=== PATIENT | female | born 1995 | race Caucasian/White ===

== ENCOUNTER 2017-05-12 14:58 | Inpatient (IN) | payer OTHER ==
[~2017-05-12] VITALS: Ht 170.2 cm; Wt 98.1 kg
[2017-05-12 15:04] VITALS: BP 101/60; PULSE 85; RESP 18; Ht 170.2 cm; Wt 98.1 kg
[2017-05-12] MEDS ORDERED: BUTORPHANOL 2 MG INJ IV PRN (16:00)
[2017-05-12] MEDS ORDERED: LACTATED RINGER'S 1,000 ML IV PRN (16:00)
[2017-05-12] MEDS ORDERED: LIDOCAINE 1% (MPF) 30 ML INJ INJ PRN (16:00)
[2017-05-12] MEDS ORDERED: MISOPROSTOL 200 MCG TAB PR PRN (16:00)
[2017-05-12] MEDS ORDERED: MINERAL OIL LIGHT 10 ML VIAL TOP ONE (16:00)
[2017-05-12] MEDS ORDERED: OXYTOCIN 30 UNITS/LR 500 ML IV SCH ×2 (16:00)
[2017-05-12] MEDS ORDERED: CARBOPROST 250 MCG INJ IM PRN (16:00)
[2017-05-12] MEDS ORDERED: METHYLERGONOVINE 0.2 MG INJ IM PRN (16:00)
[2017-05-12] MEDS ORDERED: IBUPROFEN 600 MG TAB PO PRN (16:00)
[2017-05-12] MEDS ORDERED: OXYTOCIN 30 UNITS/LR 500 ML IV PRN (16:00)
[2017-05-12] MEDS ORDERED: AMPICILLIN 2 GM/NS (PMX) 100 ML IV ONE (16:00)
[2017-05-12] MEDS ORDERED: ACETAMINOPHEN/CODEINE #3 TAB PO PRN (16:00)
--- NOTE | 2017-05-12 16:00 | TRIAGE ---
OB Triage Datetime Report Generated by CPN: 05/12/2017 15:59 Datetime: 05/12/2017 15:15 Vaginal Exam Dilatation (cms): 1.5 Effacement (%): 70 Station: -3 Exam By: HARSHIL Vaginal Bleeding: None Cervix, Consistency: Moderate Cervix, Position: Posterior Presentation 'A': Cephalic Datetime: 05/12/2017 15:05 Time of Arrival: 05/12/2017 14:40 EGA: 40.0 Arrived By: Ambulatory Arrived From: Home Chief Complaint: PT PRESENTS TO TRIAGE COMPLAINING OF CONTRACTIONS SINCE 1000, ALSO REPORTS EAR A KOKI X 2 DAYS Movement: Present Contractions: Irregular Time Contractions Began: 05/12/2017 10:00 Contractions: Q5-20 Rupture of Membranes: Denies Vaginal Bleeding: None Vaginal Discharge: Denies Recent Sexual Intercouse: Denies Abdominal Trauma: Not Applicable Patient Complaints: Contractions Time Provider Notified: 05/12/2017 15:19 Provider Notified: FOROOHAR Initial Plan: EFM/SVE Datetime: 05/12/2017 14:50 Assessment Type: Triage Maternal Assessment Level of Consciousness: Fully Conscious DTR's/Clonus: DTRs 2+; No Clonus Headache: Denies Blurred Vision: No Respiratory Effort: Unlabored; Regular Rhythm Breath Sounds, Left: Clear and Equal Breath Sounds, Right: Clear and Equal Nausea/Vomiting: Denies RUQ Epigastric Pain: Denies Lower Extremities Edema: None Degree: None Upper Extremities Edema: None Degree: None Facial Edema: None Temperature Route: Oral Fall Risk Assessment History of Falling: (0) No Secondary Diagnosis: (0) No Ambulatory Aid: (0) Bedrest/Nurse Assist IV Therapy: (0) No Gait: (0) Normal/Bedrest/Immobile Mental Status: (0) Oriented to Own Ability Fall Score: 0 Fall Risk Score Definition: No Risk: No action required
--- NOTE | 2017-05-12 16:24 | RADRPT ---
PROCEDURE: US limited OB for weight CLINICAL INDICATION: Macrosomia TECHNIQUE: Multiple sonographic images of the pelvis were obtained. Transabdominal imaging only w as performed. The images were reviewed on a PACS workstation. COMPARISON: No prior studies are available for comparison. FINDINGS: There is a single viable intrauterine gestation. Cardiac activity is present with 128 beats per minute. There is a cephalic presentation. Measurements were made in order to determine age. The results are as follows: BPD = 9.2 cm. HC = 32.8 cm. AC = 34.9 cm. FL = 7.6 cm. Estimated gestational age of approximately 38 weeks 0 days. The estimated date of delivery is 05/26/2017. The EFW = 3484 g. Growth percentile 38 %. The placenta is fundal grade II. There is no evidence for an abruption or placenta previa. IMPRESSION: 1. Single viable intrauterine gestation of approximately 38 weeks 0 days. 2. Estimated weight is 3484 grams with a growth percentile of 38 %. RPTAT: QQ .Byron Goodwin MD, MD Date Time Electronically viewed and signed by .Byron Goodwin MD, on 05/12/2017 16:24 .L/
[2017-05-12] MEDS: LACTATED RINGER'S 1,000 ML IV SCH (17:40)
[2017-05-12 17:55] LABS: BASOPHILS % 0.2 % (0.0-2.0); EOSINOPHILS # 0.1 10^3/ul (0.0-0.5); EOSINOPHILS % 1.3 % (0.0-7.0); HEMATOCRIT 36.1 % (37.0-47.0); HEMOGLOBIN 12.2 g/dl (12.0-16.0); LYMPHOCYTES # 2.1 10^3/ul (0.8-2.9); LYMPHOCYTES % 25.6 % (18.0-55.0); MEAN CORPUSCULAR HEMOGLOBIN 28.2 pg (29.0-33.0); MEAN CORPUSCULAR HGB CONC 33.8 g/dl (32.0-37.0); MEAN CORPUSCULAR VOLUME 83.6 fl (72.0-104.0); MEAN PLATELET VOLUME 10.8 fl (7.4-10.4); MONOCYTE # 0.6 10^3/ul (0.3-0.9); MONOCYTES % 6.9 % (0.0-13.0); NEUTROPHIL # 5.5 10^3/ul (1.6-7.5); NEUTROPHILS % 65.4 % (30.0-74.0); PLATELET COUNT 255 10^3/UL (140-415); RED BLOOD COUNT 4.32 10^6/ul (4.20-5.40); RED CELL DISTRIBUTION WIDTH 13.3 % (11.5-14.5); WHITE BLOOD COUNT 8.4 10^3/ul (4.8-10.8)
[2017-05-12 18:14] LABS: INR 0.93; PROTIME 12.5 Sec (12.2-14.2)
[2017-05-12 18:15] LABS: PARTIAL THROMBOPLASTIN TIME 25.8 Sec (25.0-35.0)
[2017-05-12] MEDS: AMPICILLIN 1 GM/NS (PMX) 50 ML IV SCH (20:01)
[2017-05-12 21:15] LABS: BARBITURATES Negative (NEGATIVE); BENZODIAZEPINES Negative (NEGATIVE); CANNABINOIDS Negative (NEGATIVE); COCAINE Negative (NEGATIVE); OPIATES Negative (NEGATIVE)
[2017-05-13] MEDS: AMPICILLIN 1 GM/NS (PMX) 50 ML IV SCH ×4 (00:11→12:00)
[2017-05-13] MEDS: LACTATED RINGER'S 1,000 ML IV SCH ×3 (01:27→09:40)
[2017-05-13] MEDS ORDERED: OXYTOCIN 30 UNITS/LR 500 ML IV SCH ×3 (02:00→14:03)
[2017-05-13] MEDS ORDERED: FENTAnyl 2MCG/ML-ROPIV 0.2% 100 ML ONE (09:27)
--- NOTE | 2017-05-13 12:52 | LDN ---
Date/Time of Note Date/Time of Note DATE: 05/13/17 TIME: 12:51 Delivery Summary pt delivered viable without complications. ebl 200 3 vessel cord Placenta Delivered: Spontaneously Meconium: none Episiotomy: No (Please specify) Anesthesia type: Epidural Estimated blood loss: 200 Sponge & Needle done & correct: Yes All needle counts correct: Yes Any foreign bodies felt in the: No Problems: EMILY DAVIES MD May 13, 2017 12:52
[2017-05-13] MEDS ORDERED: NALOXONE (0.4 MG/ML) INJ IV PRN (14:00)
[2017-05-13] MEDS ORDERED: FENTAnyl 2MCG/ML-ROPIV 0.2% 100 ML BAG EPI SCH (14:00)
[2017-05-13] MEDS ORDERED: ONDANSETRON 4 MG INJ IV PRN (14:00)
[2017-05-13] MEDS ORDERED: DIPHENHYDRAMINE 50 MG INJ IV PRN (14:00)
[2017-05-13] MEDS ORDERED: LACTATED RINGER'S 1,000 ML IV* SCH (14:03)
[2017-05-13] MEDS ORDERED: METHYLERGONOVINE 0.2 MG INJ IM PRN (14:30)
[2017-05-13] MEDS ORDERED: WITCH HAZEL/GLYCERIN PAD PR PRN (14:30)
[2017-05-13] MEDS ORDERED: LANOLIN 7 GM TUBE TOP PRN (14:30)
[2017-05-13] MEDS ORDERED: CARBOPROST 250 MCG INJ IM PRN (14:30)
[2017-05-13] MEDS ORDERED: MISOPROSTOL 200 MCG TAB PR PRN (14:30)
[2017-05-13] MEDS ORDERED: OXYTOCIN 30 UNITS/LR 500 ML IV PRN (14:30)
[2017-05-13] MEDS ORDERED: BENZOCAINE 20% 56 ML SPRAY TOP PRN (14:30)
[2017-05-13 14:31] VITALS: BP 101/64; PULSE 65; RESP 20
[2017-05-13] MEDS: CEPHALEXIN 500 MG CAP PO SCH ×2 (17:05→23:56)
[2017-05-13] MEDS: IBUPROFEN 600 MG TAB PO SCH ×2 (17:05→23:56)
[2017-05-13 17:22] VITALS: BP 97/51; PULSE 82; RESP 20
--- NOTE | 2017-05-13 17:26 | HP ---
Date/Time of Note Date/Time of Note late entry DATE: 05/13/17 TIME: 17:23 OB - History Hx of Present Free Text/Dictation admitted in labor at term Estimated Due Date: May 12, 2017 : 3 Para: 2 Care: Good Care Ultrasounds: Normal mid trimester US Obstetrical Complications: None, Other (marijuana use during ) Medical Complications: None Past Family/Social History * Past Medical, Surgical, Family and Obstetric Histories reviewed from chart. Blood Type: B+ Rubella: immune RPR/VDRL: Negative GBS Status: Unknown HBsAG: Negative OB Admission Exam Vital Signs Vital Signs Vital Signs Date Time Temp Pulse Resp B/P Pulse Ox O2 Delivery O2 Flow Rate FiO2 05/13/17 14:31 98.0 65 20 101/64 Room Air Physical Exam HEENT: WNL Heart: Rhythm Normal Lungs: Clear, Equal Abdomen: WNL Extremities: Normal Reflexes: Normal Cervical Dilatation: 3cm Effacement: 50% Station: -3 Membranes: Intact Heart Rate: 140's Accelerations: Accelerations Present Decelerations: No Decelerations Varibility: Marked Contractions on Admission: 6-10 Minutes Apart Date/Time Contractions Began: 05/12/2017 Frequency of Contractions: q5 Duration: >60 seconds Intensity: Mild Last 72 hours Lab Results CBC & BMP 05/12/17 17:10 OB Assessment/Plan Other Assessment: term gestation labor pains Other plan: proceed with spontaneous labor JOHN AGUILAR MD May 13, 2017 17:26
[2017-05-13] MEDS ORDERED: IBUPROFEN 800 MG TAB PO SCH (18:00)
[2017-05-13 20:00] VITALS: BP 102/61; PULSE 70; RESP 18
[2017-05-13] MEDS: SENNA/DOCUSATE NA (8.6MG/50MG) TAB PO SCH (21:14)
[2017-05-14 04:00] VITALS: BP 96/61; PULSE 60; RESP 20
[2017-05-14] MEDS: IBUPROFEN 600 MG TAB PO SCH ×4 (06:12→23:40)
[2017-05-14] MEDS: CEPHALEXIN 500 MG CAP PO SCH ×4 (06:12→23:40)
[2017-05-14 07:45] VITALS: BP 91/55; PULSE 60; RESP 18
--- NOTE | 2017-05-14 09:02 | PN ---
Date/Time of Note Date/Time of Note DATE: 05/14/17 TIME: 09:01 OB Subjective Subjective Subjective Post normal vaginal delivery day 1 Afebrile Vital signs are stable Abdomen soft Uterus firm Lochia normal Extremity normal Current Medications Medications (Trade) Dose Ordered Sig/Sara Route PRN Reason Start Time Stop Time Status Last Admin Dose Admin Lactated Ringer's 1,000 ml @ 125 mls/hr Q8H IV 05/12/17 15:40 05/13/17 14:07 DC 05/13/17 09:40 Ampicillin 100 ml @ 100 mls/hr ONCE ONCE IV 05/12/17 16:00 05/12/17 16:59 DC 05/12/17 18:32 Ampicillin (Ampicillin 1 Gm/ NS (Pmx)) 50 ml @ 100 mls/hr Q4H IV 05/12/17 20:00 05/13/17 14:09 DC 05/13/17 07:58 Butorphanol Tartrate (Stadol) 2 mg Q2H PRN IV PAIN 05/12/17 16:00 05/13/17 14:10 DC Lidocaine 30 ml 30 ml ONCE PRN INJ EPISIOTOMY/TEARING 05/12/17 16:00 05/13/17 14:10 DC Oxytocin/Lactated Ringer's 500 ml @ 125 mls/hr ONCE -MAY REPEAT X1 IV 05/12/17 16:00 05/13/17 14:10 DC Oxytocin/Lactated Ringer's 500 ml @ 125 mls/hr ONCE IV 05/12/17 16:00 05/13/17 14:10 DC 05/13/17 12:54 Ibuprofen (Motrin) 600 mg ONCE PRN PO Mild Pain (Pain Score 1-3) 05/12/17 16:00 05/13/17 14:10 DC Acetaminophen/ Codeine Phosphate 2 tab 2 tab ONCE PRN PO Moderate to Severe Pain (4-10) 05/12/17 16:00 05/13/17 14:07 DC Lactated Ringer's 1,000 ml @ 2,000 mls/hr Q30M PRN IV PRE-EPIDURAL BOLUS 05/12/17 16:00 05/13/17 14:07 DC 05/13/17 08:51 Oxytocin/Lactated Ringer's 500 ml @ 0 mls/hr ONCE PRN IV For Hemorrhage Management 05/12/17 16:00 05/13/17 14:07 DC Methylergonovine Maleate (Methergine) 0.2 mg ONCE PRN IM VAGINAL BLEEDING 05/12/17 16:00 05/13/17 14:07 DC Carboprost Tromethamine (Hemabate) 250 mcg ONCE PRN IM VAGINAL BLEEDING 05/12/17 16:00 05/13/17 14:07 DC Misoprostol (Cytotec) 1,000 mcg ONCE PRN VA VAGINAL BLEEDING 05/12/17 16:00 05/13/17 14:07 DC Mineral Oil ONCE ONCE TOP 05/12/17 16:00 05/12/17 16:01 DC Oxytocin/Lactated Ringer's 500 ml @ 0 mls/hr Q0M IV 05/13/17 00:00 05/13/17 14:07 DC 05/13/17 02:07 Oxytocin/Lactated Ringer's 500 ml @ 0 mls/hr Q0M IV 05/13/17 02:00 05/13/17 14:07 DC Fentanyl/ Ropivacaine 100 ml @ [facility] ONCE .ROUTE 05/13/17 09:27 05/13/17 09:28 DC Naloxone HCl (Narcan) 0.1 mg Q2M PRN IV FOR RESP RATE 8 OR LESS 05/13/17 14:00 05/13/17 14:08 DC Diphenhydramine HCl (Benadryl) 25 mg Q6H PRN IV ITCHING 05/13/17 14:00 05/13/17 14:08 DC Ondansetron HCl (Zofran Inj) 4 mg Q6H PRN IV NAUSEA AND/OR VOMITING 05/13/17 14:00 05/13/17 14:08 DC Fentanyl/ Ropivacaine 100 ml 100 ml EPIDURAL INFUSION EPI 05/13/17 14:00 05/13/17 14:08 DC Oxytocin/Lactated Ringer's 500 ml @ 125 mls/hr Q4H IV 05/13/17 14:03 05/13/17 22:02 DC 05/13/17 17:07 Lactated Ringer's (Lr) 1,000 ml @ 125 mls/hr Q8H IV* 05/13/17 14:03 Ibuprofen (Motrin) 600 mg Q6 PO 05/13/17 18:00 05/14/17 06:12 Ibuprofen (Motrin) 800 mg Q6 PO 05/13/17 18:00 05/13/17 18:00 DC Acetaminophen/ Codeine Phosphate (Tylenol No.3) 1 tab Q4H PRN PO PAIN LEVEL 1-5 05/13/17 14:30 Senna/Docusate Sodium (Senokot-S) 1 tab BID PO 05/13/17 21:00 05/13/17 21:14 Witch Mandy/ Glycerin (Tucks Pads) 1 pad BEDSIDE MEDICATION PRN VA HEMORRHOID/EPISIOTMY PAIN 05/13/17 14:30 Benzocaine (Dermoplast [place]) 1 spray BEDSIDE MEDICATION PRN TOP HEMORRHOID/EPISIOTMY PAIN 05/13/17 14:30 05/13/17 17:05 Lanolin 1 applic 1 applic BEDSIDE MEDICATION PRN TOP BEDSIDE FOR WILIAN TO NIPPLES 05/13/17 14:30 Oxytocin/Lactated Ringer's 500 ml @ 0 mls/hr ONCE PRN IV For Hemorrhage Management 05/13/17 14:30 Methylergonovine Maleate (Methergine) 0.2 mg ONCE PRN IM VAGINAL BLEEDING 05/13/17 14:30 Carboprost Tromethamine (Hemabate) 250 mcg ONCE PRN IM VAGINAL BLEEDING 05/13/17 14:30 Misoprostol (Cytotec) 1,000 mcg ONCE PRN VA VAGINAL BLEEDING 05/13/17 14:30 Cephalexin (Keflex) 500 mg Q6 PO 05/13/17 18:00 05/14/17 06:12 AC OSORIO MD May 14, 2017 09:02
[2017-05-14] MEDS: SENNA/DOCUSATE NA (8.6MG/50MG) TAB PO SCH ×2 (09:35→20:33)
[2017-05-14 16:00] VITALS: BP 95/60; PULSE 57; RESP 18
[2017-05-14 20:00] VITALS: BP 101/61; PULSE 57; RESP 19
[2017-05-14] MEDS: ACETAMINOPHEN/CODEINE #3 TAB PO PRN (20:13)
[2017-05-15] MEDS: ACETAMINOPHEN/CODEINE #3 TAB PO PRN ×2 (01:25→09:18)
[2017-05-15 04:00] VITALS: BP 91/45; PULSE 58; RESP 19
[2017-05-15] MEDS: CEPHALEXIN 500 MG CAP PO SCH ×2 (05:32→12:31)
[2017-05-15] MEDS: IBUPROFEN 600 MG TAB PO SCH ×2 (05:32→12:31)
[2017-05-15 07:40] VITALS: BP 88/54; PULSE 69; RESP 20
[2017-05-15 07:52] LABS: BASOPHILS % 0.3 % (0.0-2.0); EOSINOPHILS # 0.2 10^3/ul (0.0-0.5); EOSINOPHILS % 1.6 % (0.0-7.0); HEMATOCRIT 33.1 % (37.0-47.0); HEMOGLOBIN 10.9 g/dl (12.0-16.0); LYMPHOCYTES # 3.6 10^3/ul (0.8-2.9); LYMPHOCYTES % 34.9 % (18.0-55.0); MEAN CORPUSCULAR HEMOGLOBIN 28.5 pg (29.0-33.0); MEAN CORPUSCULAR HGB CONC 32.9 g/dl (32.0-37.0); MEAN CORPUSCULAR VOLUME 86.6 fl (72.0-104.0); MEAN PLATELET VOLUME 10.5 fl (7.4-10.4); MONOCYTE # 0.6 10^3/ul (0.3-0.9); NEUTROPHIL # 5.8 10^3/ul (1.6-7.5); NEUTROPHILS % 56.9 % (30.0-74.0); PLATELET COUNT 222 10^3/UL (140-415); RED BLOOD COUNT 3.82 10^6/ul (4.20-5.40); RED CELL DISTRIBUTION WIDTH 13.2 % (11.5-14.5); WHITE BLOOD COUNT 10.2 10^3/ul (4.8-10.8)
[2017-05-15 09:01] VITALS: BP 109/56; PULSE 65; RESP 20
[2017-05-15] MEDS: SENNA/DOCUSATE NA (8.6MG/50MG) TAB PO SCH (09:18)
--- NOTE | 2017-05-15 10:09 | PD.PPDC ---
[employer] Discharge Instruction Condition Patient Condition: Good Diet Diet: Resume Regular Diet Activity/Restrictions Activity: Normal Activity May Shower Restrictions: No Exercising No Lifting No Driving No Sexual Activity Nothing in the Vagina No [place] No Tampons, douche Follow-up Follow-up with Physician: 2, Week/Weeks Provider Information: Appointment clinic in 2 weeks for check Return to clinic for LENS BLANK GAUGER Instructions: Fever greater than 101 Chills Worsening abdominal pain Excessive Vaginal Bleeding More than 2 pads per hour Unable to tolerate diet OB Instructions: Breast Tenderness Depression Blurried Vision Headache AC OSORIO MD May 15, 2017 10:09
--- NOTE | 2017-05-15 10:11 | DS ---
Date/Time of Note Date/Time of Note DATE: 05/15/17 TIME: 10:10 Discharge Summary Admission/Discharge Info Admit Date/Time May 12, 2017 at 15:30 Discharge Date/Time May 15, 2017 at 10 AM Discharge Diagnosis Normal vaginal delivery day 2 Procedures Normal vaginal delivery Hx of Present Illness Term in labor Hospital Course Satisfactory uneventful Follow-up Plan instructions given recommended to make appointment in 2 weeks to be seen at the clinic Primary Care Provider Not On Staff Doctor Time spent on discharge: < 30 minutes Pending Labs Laboratory Tests Test 05/15/17 07:29 White Blood Count 10.210^3/ul (4.8-10.8) Red Blood Count 3.8210^6/ul (4.20-5.40) Hemoglobin 10.9g/dl (12.0-16.0) Hematocrit 33.1% (37.0-47.0) Mean Corpuscular Volume 86.6fl (72.0-104.0) Mean Corpuscular Hemoglobin 28.5pg (29.0-33.0) Mean Corpuscular Hemoglobin Concent 32.9g/dl (32.0-37.0) Red Cell Distribution Width 13.2% (11.5-14.5) Platelet Count 07754^3/UL (140-415) Mean Platelet Volume 10.5fl (7.4-10.4) Neutrophils % 56.9% (30.0-74.0) Lymphocytes % 34.9% (18.0-55.0) Monocytes % 6.0% (0.0-13.0) Eosinophils % 1.6% (0.0-7.0) Basophils % 0.3% (0.0-2.0) Nucleated Red Blood Cells % 0.0/100WBC (0.0-0.0) Neutrophils # 5.810^3/ul (1.6-7.5) Lymphocytes # 3.610^3/ul (0.8-2.9) Monocytes # 0.610^3/ul (0.3-0.9) Eosinophils # 0.210^3/ul (0.0-0.5) Basophils # 0.010^3/ul (0.0-0.1) Nucleated Red Blood Cells # 0.010^3/ul (0.0-0.0) DEVON,HORMOZ MD May 15, 2017 10:11
== END 2017-05-15 16:20 | disposition home or self-care (01) | DRG 775 ==
LOC: OBT 14:58 → L-D 15:00 → OBT 15:30 → PP1 05-13 14:45
PROVIDERS: ADMIT Obstetrics & Gynecology; ATTEND Obstetrics & Gynecology
PROC: 10E0XZZ Delivery of Products of Conception, External Approach (ICD-10-PCS; principal; 2017-05-13)
PROC: 3E033VJ Introduction of Other Hormone into Peripheral Vein, Percutaneous Approach (ICD-10-PCS; 2017-05-13)
DX: O99.324 Drug use complicating childbirth (principal); F12.90 Cannabis use, unspecified, uncomplicated; O48.0 Post-term pregnancy; Z3A.40 40 weeks gestation of pregnancy; Z37.0 Single live birth
CPT/HCPCS: 62319; 76815; 80307; 85025; 85610; 85730; 86592; 86900; 86901; 87340; G0463; J0290; J2590; J3010; J7120